=== PATIENT | male | born 1970 | race Caucasian/White ===

== ENCOUNTER 2021-02-10 10:15 | Inpatient (IN) ==
[2021-02-10] MEDS ORDERED: LEVAQUIN PREMIX IV 750 MG 750 MG/150 ML BAG IV ONE ×2 (10:38→10:56)
[2021-02-10] MEDS ORDERED: NS 1000 ML 1,000 ML IV ONE ×2 (10:38→13:00)
[2021-02-10] MEDS ORDERED: DUONEB 0.5 MG/3 MG (3 mL) NEB ONE ×2 (10:38→11:01)
--- NOTE | 2021-02-10 10:38 | DR.GENAD ---
HPI Time Seen Time Seen by Provider: 02/10/21 10:34 PCP Primary Care Physician: BEATRIZ LEWIS HPI Comment HPI Comment: PATIENT COMPLAINS OF PROGRESSIVE DYSPNEA, DYSPNEA AT REST, PRODUCTIVE COUGH BLOOD SPUTUM, WEAKNESS, FEVER. DENIES CHEST PAIN. HAS HAD IST VACCINE PFIZER 12 DAYS AGO. HAS GIRLFRIEND POSITIVE WITH COVID. Complaint/Symptoms Chief Complaint Doctors Comments: DYSPNEA, PRODUCTIVE COUGH, FEVER Chief Complaint:: PATIENT CAME TO ER REPORTS SOB WORSENING, TESTED FOR COVID WITH NEGATIVE RESULTS 10 DAYS AGO. PATIENT REPORTS GIRLFRIEND IS POSITIVE. COVID-19 Coronavirus risk:travel/contact w/high risk person: Yes Has patient experienced Coronavirus symptoms: No Coronavirus symptoms experienced: Shortness of Breath Nurses notes reviewed Nurses Notes Review: Yes Source History Provided: Patient Mode of Arrival Mode of Arrival: Ambulatory Timing Onset of Chief Complaint: 02/01/21 Came on: Gradually Duration Duration: Constant Modifying Factors Worsens:: EXERTION Associated Signs and Symptoms Associated Signs and Symptoms: PRODUCTIVE COUGH, FEVER PMH PMH Past Medical History: No Past Surgical History: Yes Surgical History: Tonsillectomy Family History History of Family Medical Conditions: Yes Family Medical History: Diabetes Mellitus Social History Alcohol Use: None Do you use any recreational Drugs:: No Lives With: Significant Other Travel Risk Coronavirus risk:travel/contact w/high risk person: Yes Has patient experienced Coronavirus symptoms: No Coronavirus symptoms experienced: Shortness of Breath Infectious screening Have you traveled outside the country in the last 6 months?: No Isolation: Droplet ROS Review of Systems Constitutional: Chills, Fever, Malaise, Weakness and Fatigue Eyes: No Symptoms Reported ENTM: No Symptoms Reported Respiratoy: Productive Cough (BLOOD MIXED IN SPUTUM) Cardiovascular: No Symptoms Reported Gastrointestinal/Abdominal: No Symptoms Reported Genitourinary: No Symptoms Reported Neurological: No Symptoms Reported Musculoskeletal: No Symptoms Reported Integumentary: No Symptoms Reported Hematologic/Lymphatic: No Symptoms Reported Endocrine: No Symptoms Reported Psychiatric: No Symptoms Reported All Other Systems: Reviewed and Negative PE Vital Signs Vitals: Temperature 98.2 F Pulse Rate 115 Respiratory Rate 31 Blood Pressure 148/90 O2 Sat by Pulse Oximetry 89 General General Appearance: Alert and In No Apparent Distress Head Head Exam: Normal Inspection and Atraumatic Eyes Eye exam: Normal Appearance, PERRL and EOMI ENT ENT Exam: Normal Exam and Normal Oropharynx External Ear Exam: Normal External Inspection TM/Canal Exam: Bilateral: Normal Mouth Exam: Normal Inspection Neck Neck Exam: Normal Inspection and Full ROM Chest Chest Inspection: Normal Inspection and Symmetric Chest Wall Rise Respiratory Respiratory Exam: Bilateral: Decreased Breath Sounds and Bilateral: Dullness on Percussion and Lower: Decreased Breath Sounds and Lower: Dullness on Percussion Cardiovascular Cardiovascular Exam: Regular Rate and Normal Rhythm Abdominal Exam Abdominal Exam: Normal Inspection, Normal Bowel Sounds and Soft Extremities Extremities Exam: Normal Inspection and Full ROM Back Back Exam: Normal Inspection, Full ROM and Tenderness Neurologic Neurological Exam: Alert Psychiatric Psychiatric Exam: Normal Affect and Normal Mood MDM Differential Diagnosis Differential Diagnosis: COVID PNEUMONIA, PULMONARY EMBOLISM, CONGESTIVE HEART FAILURE COURSE Treatment Treatment: PLACED ON SEPSIS PROTOCOL 170/30ML, AFTER 2 SETS OF BLOOD CULTURES, LEVAQUIN 750MG IVPB, DUO NEB AEROSOL 12ML, PLACED ON TELEMETRY, OXYGEN, ADMINISTERED 2 LITERS NS, LACTIC 1.8, ABG PH-7.44/CO2-44/P02-45/BICARB-29/SAT-83%, ADMINISTERED DUONEB 12ML OVER 40 MINUTES, PLACED ON 4 LITERS NASAL CANNULA OXYGEN PULSE OX 91% Reevaluation 1st: Unchanged Consultation Call Returned: 15:20 Consultation Comments: FINDINGS DISCUSSED WITH DR RICK FOR INPATIENT ADMISSION Education/Counseling Educated On: Treatment and Diagnosis ROR Labs Reviewed Result Diagrams: 02/10/21 11:10 02/10/21 11:10 Laboratory: WBC 5.8 X10^3/uL (3.6-10.0) 02/10/21 11:10 RBC 5.05 X10^6/uL (4.7-6.0) 02/10/21 11:10 Hgb 15.4 g/dL (13.5-18.0) 02/10/21 11:10 Hct 43.7 % (42.0-54.0) 02/10/21 11:10 MCV 86.6 fL (80.0-100.0) 02/10/21 11:10 MCH 30.5 pg (27.0-34.0) 02/10/21 11:10 MCHC 35.2 g/dL (33.0-35.0) H 02/10/21 11:10 RDW 12.6 % (11.6-16.5) 02/10/21 11:10 Plt Count 126 X10^3/uL (150.0-450.0) L 02/10/21 11:10 MPV 8.8 fL (7.4-11.0) 02/10/21 11:10 Neut % (Auto) 82.2 % (42.0-75.0) H 02/10/21 11:10 Lymph % (Auto) 11.0 % (21.0-51.0) L 02/10/21 11:10 [place] % (Auto) 6.6 % (0.0-13.0) 02/10/21 11:10 Eos % (Auto) 0.0 % (0.9-2.9) L 02/10/21 11:10 Baso % (Auto) 0.2 % (0.2-1.0) 02/10/21 11:10 Neut # (Auto) 4.8 x10^3/uL (2.2-4.8) 02/10/21 11:10 Lymph # (Auto) 0.6 X10^3/uL (1.3-2.9) L 02/10/21 11:10 [place] # (Auto) 0.4 x10^3/uL (0.3-0.8) 02/10/21 11:10 Eos # (Auto) 0.0 x10^3/uL (0.0-0.2) 02/10/21 11:10 Baso # (Auto) 0.0 X10^3/uL (0.0-0.1) 02/10/21 11:10 Absolute Nucleated RBC 0.1 /100WBC 02/10/21 11:10 PT 13.2 SECONDS (11.8-14.3) 02/10/21 11:06 INR Target Range - 02/10/21 11:06 INR 1.05 (0.8-1.3) 02/10/21 11:06 D-Dimer 0.83 ug/ml (0.0-0.57) H* 02/10/21 11:06 Sample Site Lr 02/10/21 10:50 ABG pH 7.440 (7.35-7.45) 02/10/21 10:50 ABG pCO2 44.0 mmHg (35.0-45.0) 02/10/21 10:50 ABG pO2 45.0 mmHg (80.0-100.0) L* 02/10/21 10:50 ABG HCO3 29.9 mmol/L (22-26) H 02/10/21 10:50 ABG O2 Saturation 83.0 % (90-100) L* 02/10/21 10:50 ABG Base Excess 5.1 mmol/L (-2.0-2.0) H 02/10/21 10:50 Sha Test Pos 02/10/21 10:50 A-a Gradient 50.0 mmHg 02/10/21 10:50 FiO2 21.0 02/10/21 10:50 Blood Gas Comments Pt guicho well. ssd 02/10/21 10:50 Sodium 131 mmol/L (136-145) L 02/10/21 11:10 Corrected Sodium 135 mmol/L (136-145) L 02/10/21 11:10 Potassium 4.0 mmol/L (3.5-5.1) 02/10/21 11:10 Chloride 93 mmol/L (98-107) L 02/10/21 11:10 Carbon Dioxide 30.5 mmol/L (21-32) 02/10/21 11:10 BUN 6 mg/dL (7-18) L 02/10/21 11:10 Creatinine 0.83 mg/dL (0.70-1.30) 02/10/21 11:10 Est GFR (MDRD) Af Amer > 60 (>60) 02/10/21 11:10 Est GFR (MDRD) Non-Af > 60 (>60) 02/10/21 11:10 Glucose 252 mg/dL (65-99) H 02/10/21 11:10 Lactic Acid 1.8 mmol/L (0.4-2.0) 02/10/21 11:10 Calcium 8.2 mg/dL (8.5-10.1) L 02/10/21 11:10 Corrected Calcium 9.2 mg/dL (8.5-10.1) 02/10/21 11:10 Ferritin 2312 ng/mL (26-388) H 02/10/21 11:06 Total Bilirubin 0.30 mg/dL (0.2-1.0) 02/10/21 11:10 AST 65 Units/L (15-37) H 02/10/21 11:10 ALT 70 Units/L (12-78) 02/10/21 11:10 Alkaline Phosphatase 66 Units/L (46-116) 02/10/21 11:10 Troponin I < 0.02 ng/mL (0-1.5) 02/10/21 11:10 C-Reactive Protein 205.80 mg/L (0-3.0) H 02/10/21 11:10 B-Natriuretic Peptide 11.7 pg/mL (0-79) 02/10/21 11:10 Total Protein 7.0 g/dL (6.4-8.2) 02/10/21 11:10 Albumin 2.7 g/dL (3.4-5.0) L 02/10/21 11:10 Globulin 4.3 g/dL (2.5-4.5) 02/10/21 11:10 Albumin/Globulin Ratio 0.6 Ratio (1.1-2.1) L 02/10/21 11:10 SARS-CoV-2 (PCR) Positive (NEGATIVE) A 02/10/21 10:58 Influenza Type A (PCR) Negative (NEGATIVE) 02/10/21 10:58 Influenza Type B (PCR) Negative (NEGATIVE) 02/10/21 10:58 RSV (PCR) Negative (NEGATIVE) 02/10/21 10:58 XRAY XRAY Interpreted by: Radiologist (CTA CHEST IV CONTRAST- NO EVIDENCE OF PULMONA RY EMBOLISM, MODERATE BILATERAL GROUND GLASS OPACITIES) X-ray Results: PORTABLE CHEST XRAY-DIFFUSE OPACITIES CONSISTENT WITH MODERATE SEVERE PNEUMONIA EKG Rate: 99 Rhythm: NSR ST: Nonsp Opioid Opioid Risk Tool Age (Gerry box if 16-45): No History of Preadolescent Sexual Abuse: No Total: 0 Total Score Risk Category: Low Risk Copyright: [facility] predicting aberrant behaviors Diagnosis Discharge Problem: Acute dyspnea, Pneumonia due to COVID-19 virus
[2021-02-10] MEDS ORDERED: NS 1000 ML 1,000 ML ONE ×3 (10:55→18:22)
[2021-02-10 10:57] LABS: ABG BASE EXCESS 5.1 mmol/L (-2.0-2.0); ABG HCO3 29.9 mmol/L (22-26)
[2021-02-10 10:59] LABS: ABG ALLEN TEST POS
[2021-02-10 11:30] LABS: BASOPHILS % (AUTO) 0.2 % (0.2-1.0); HEMATOCRIT 43.7 % (42.0-54.0); HEMOGLOBIN 15.4 g/dL (13.5-18.0); LYMPHOCYTES # (AUTO) 0.6 X10^3/uL (1.3-2.9); MEAN CORPUSCULAR HEMOGLOBIN 30.5 pg (27.0-34.0); MEAN CORPUSCULAR HGB CONC 35.2 g/dL (33.0-35.0); MEAN CORPUSCULAR VOLUME 86.6 fL (80.0-100.0); MEAN PLATELET VOLUME 8.8 fL (7.4-11.0); MONOCYTES # (AUTO) 0.4 x10^3/uL (0.3-0.8); MONOCYTES % (AUTO) 6.6 % (0.0-13.0); NEUTROPHILS # (AUTO) 4.8 x10^3/uL (2.2-4.8); NEUTROPHILS % (AUTO) 82.2 % (42.0-75.0); PLATELET COUNT 126 X10^3/uL (150.0-450.0); RED BLOOD COUNT 5.05 X10^6/uL (4.7-6.0); RED CELL DISTRIBUTION WIDTH 12.6 % (11.6-16.5); WHITE BLOOD COUNT 5.8 X10^3/uL (3.6-10.0)
--- NOTE | 2021-02-10 11:32 | RAD ---
HISTORYPATIENT CAME TO ER REPORTS SOB WORSENING, TESTED FOR COVID WITH NEGATIVE RESULTS 10 DAYS AGO. PATIENT REPORTS GIRLFRIEND IS POSITIVE TONSILSSTUDYCHEST, 1 VIEWCOMPARISONNoneFINDINGSThe trachea is midline. The cardiac silhouette is unremarkable. There are bilateral diffuse opacities consistent with pneumonia. The infiltrate is more diffuse in the left mid and lower lung field more focal in dense in the right upper and minimally in the right lower lung field. There is no effusion adenopathy or pneumothorax present. The bony thorax is unremarkable.IMPRESSIONBilateral diffuse lung opacities consistent with moderately severe pneumonia. Radiographic follow-up is recommended..Electronically signed by: LATOSHA VELEZ (Feb 10, 2021 11:30:39)
[2021-02-10 11:47] LABS: LACTIC ACID 1.8 mmol/L (0.4-2.0)
[2021-02-10 11:54] LABS: ALANINE AMINOTRANSFERASE 70 Units/L (12-78); ALBUMIN 2.7 g/dL (3.4-5.0); ALKALINE PHOSPHATASE 66 Units/L (46-116); ASPARTATE AMINO TRANSFERASE 65 Units/L (15-37); BLOOD UREA NITROGEN 6 mg/dL (7-18); CALCIUM 8.2 mg/dL (8.5-10.1); CARBON DIOXIDE 30.5 mmol/L (21-32); CHLORIDE 93 mmol/L (98-107); COR CA(FOR HYPOALB) 9.2 mg/dL (8.5-10.1); COR NA(FOR HYPERGLY) 135 mmol/L (136-145); CREATININE 0.83 mg/dL (0.70-1.30); SODIUM 131 mmol/L (136-145); TROPONIN I < 0.02 ng/mL (0-1.5); eGFR NON BLACK RACES > 60 (>60)
--- NOTE | 2021-02-10 14:40 | CT ---
HISTORYDYSPNEA ELEVATED DDIMERSTUDYCTA CHESTCOMPARISONSame day chest radiograph.TECHNIQUECTA chest protocol with axial images from the thoracic inlet to upper abdomen with IV contrast. Sagittal and coronal reformats and MIP images were created. Automated exposure control was utilized.FINDINGSThe visualized thyroid gland appears benign. Non-atherosclerotic normal caliber thoracic aorta. The pulmonary artery trunk is normal in caliber. No filling defect in the main or proximal segmental pulmonary arteries. More distal pulmonary artery branches are limited due to suboptimal contrast bolus timing. The heart is normal in size. No pericardial effusion. Mildly enlarged prevascular space lymph node measuring 1.2 cm short axis image 55 series 4. Mildly enlarged AP window lymph node measuring 1.4 cm short axis image 58 series 4. Status post cholecystectomy. There is diffuse hepatic steatosis. No acute osseous abnormality. The trachea and mainstem bronchi appear patent. Moderate bilateral ground-glass opacities in a pattern typical for COVID 19. No pleural effusion or pneumothorax.IMPRESSIONNo central or proximal segmental pulmonary embolus. Moderate ground-glass opacities consistent with COVID 19 pneumonia.Hepatic steatosis.Electronically signed by: Esvin Anderson (Feb 10, 2021 14:38:16)
[2021-02-10] MEDS ORDERED: PERIACTIN TAB 4 MG PO PRN (16:49)
[2021-02-10] MEDS ORDERED: PHARMACY CONSULT - LOVENOX XX SCH (17:00)
[2021-02-10] MEDS ORDERED: PHARMACY CONSULT - IVERMECTIN XX SCH (17:00)
[2021-02-10] MEDS: NS 1000 ML 1,000 ML IV SCH (18:30)
[2021-02-10] MEDS: BROVANA IN SCH (21:56)
[2021-02-10] MEDS: PULMICORT NEB TX 0.5 MG NEB SCH (21:56)
[2021-02-10] MEDS: IVERMECTIN PO SCH (22:00)
[2021-02-10] MEDS: PROTONIX INJ 40 MG VIAL IVP SCH (22:40)
[2021-02-10] MEDS: VIBRAMYCIN PO SCH (22:45)
[2021-02-10] MEDS: PEPCID TAB 40 MG PO SCH (22:45)
[2021-02-10] MEDS: ZINC SULFATE PO SCH (22:45)
[2021-02-10] MEDS: THIAMINE HCL INJ IVP SCH (22:45)
[2021-02-10] MEDS: CYTOTEC PO SCH (22:45)
[2021-02-10] MEDS: LOVENOX INJ 150 MG SYR SC SCH (22:46)
[2021-02-10] MEDS: MELATONIN PO SCH (22:46)
[2021-02-10] MEDS: ASCORBIC ACID INJ MULTI-DOSE VIAL 1,500 MG in NS 100 ML IV 100 ML IV SCH (22:47)
[2021-02-11] MEDS: ASCORBIC ACID INJ MULTI-DOSE VIAL 1,500 MG in NS 100 ML IV 100 ML IV SCH ×4 (04:15→21:50)
[2021-02-11] MEDS: CYTOTEC PO SCH ×4 (05:38→23:10)
[2021-02-11] MEDS: PULMICORT NEB TX 0.5 MG NEB SCH ×2 (08:09→20:58)
[2021-02-11] MEDS: BROVANA IN SCH ×2 (08:09→20:58)
[2021-02-11] MEDS ORDERED: LOVENOX INJ 120 MG SYR SC ONE (08:54)
[2021-02-11] MEDS ORDERED: THIAMINE HCL INJ ONE (08:54)
[2021-02-11] MEDS ORDERED: VIBRAMYCIN PO ONE (08:54)
[2021-02-11] MEDS ORDERED: PEPCID TAB 20 MG ONE ×2 (08:54→10:29)
[2021-02-11] MEDS ORDERED: ZINC SULFATE ONE (08:55)
[2021-02-11] MEDS ORDERED: VITAMIN D3 125 mcg (5,000 UNITS) ONE (08:55)
[2021-02-11] MEDS ORDERED: LIPITOR TAB 80 MG ONE (08:55)
[2021-02-11] MEDS ORDERED: DECADRON TAB ONE (08:55)
[2021-02-11] MEDS ORDERED: LOVENOX INJ 30 MG SYR SC ONE (08:56)
[2021-02-11] MEDS ORDERED: PROTONIX INJ 40 MG VIAL ONE (08:56)
[2021-02-11] MEDS ORDERED: NS 100 ML IV 100 ML ONE ×2 (08:57→14:20)
[2021-02-11] MEDS ORDERED: DECADRON TAB PO SCH (09:00)
[2021-02-11] MEDS: VITAMIN A PO SCH ×2 (10:15→11:09)
[2021-02-11] MEDS: LOVENOX INJ 150 MG SYR SC SCH ×2 (10:30→21:50)
[2021-02-11] MEDS: PROTONIX INJ 40 MG VIAL IVP SCH ×2 (10:30→21:52)
[2021-02-11] MEDS: ZINC SULFATE PO SCH ×2 (10:30→21:53)
[2021-02-11] MEDS: LIPITOR TAB 80 MG PO SCH (10:30)
[2021-02-11] MEDS: THIAMINE HCL INJ IVP SCH ×2 (10:30→21:53)
[2021-02-11] MEDS: PEPCID TAB 40 MG PO SCH ×2 (10:30→21:52)
[2021-02-11] MEDS: VIBRAMYCIN PO SCH ×2 (10:30→21:53)
[2021-02-11] MEDS: VITAMIN D (1.25MG) PO SCH ×2 (10:30→15:00)
[2021-02-11 12:56] LABS: BILIRUBIN,URINE NEGATIVE (NEGATIVE); BLOOD/HEMOGLOBIN,URINE NEGATIVE (NEGATIVE); GLUCOSE, URINE NEGATIVE (NEGATIVE); KETONES,URINE NEGATIVE (NEGATIVE); LEUKOCYTE ESTERASE ,URINE NEGATIVE (NEGATIVE); NITRITES,URINE NEGATIVE (NEGATIVE); PROTEIN,URINE 2+ (NEGATIVE); UROBILINOGEN,URINE NORMAL (NORMAL)
[2021-02-11 12:58] LABS: APPEARANCE,URINE CLEAR (CLEAR); COLOR,URINE YELLOW (YELLOW)
[2021-02-11] MEDS ORDERED: PROTONIX INJ 40 MG VIAL IVP SCH (13:00)
[2021-02-11 13:03] LABS: AMORPHOUS SEDIMENT,UR TRACE /HPF (NEGATIVE); BACTERIA,URINE TRACE /HPF (NEGATIVE); RBC,URINE NONE SEEN /HPF (0-3); SQUAMOUS EPITHELIAL CELL,UR RARE /HPF (NEGATIVE)
[2021-02-11] MEDS ORDERED: FLUVOXAMINE MALEATE ONE (14:19)
[2021-02-11] MEDS: FLUVOXAMINE MALEATE PO SCH ×2 (14:58→21:50)
[2021-02-11] MEDS ORDERED: MELATONIN PO SCH (21:00)
[2021-02-11] MEDS: IVERMECTIN PO SCH (21:50)
[2021-02-11] MEDS: MELATONIN PO SCH (21:51)
[2021-02-11] MEDS: NS 1000 ML 1,000 ML IV SCH (23:10)
[2021-02-12] MEDS: ASCORBIC ACID INJ MULTI-DOSE VIAL 1,500 MG in NS 100 ML IV 100 ML IV SCH ×4 (02:42→20:48)
[2021-02-12] MEDS: NS 1000 ML 1,000 ML IV SCH ×2 (02:43→17:10)
[2021-02-12] MEDS: PULMICORT NEB TX 0.5 MG NEB SCH ×2 (09:09→21:00)
[2021-02-12] MEDS: BROVANA IN SCH ×2 (09:09→21:00)
[2021-02-12] MEDS: VITAMIN A PO SCH (09:36)
[2021-02-12] MEDS: PROTONIX INJ 40 MG VIAL IVP SCH ×2 (09:37→20:52)
[2021-02-12] MEDS: FLUVOXAMINE MALEATE PO SCH ×2 (09:39→20:49)
[2021-02-12] MEDS: CYTOTEC PO SCH ×4 (09:39→20:52)
[2021-02-12] MEDS: ZINC SULFATE PO SCH ×2 (09:39→20:49)
[2021-02-12] MEDS: VITAMIN D3 125 mcg (5,000 UNITS) PO SCH (09:39)
[2021-02-12] MEDS: PEPCID TAB 40 MG PO SCH ×2 (09:39→20:51)
[2021-02-12] MEDS: LIPITOR TAB 80 MG PO SCH (09:39)
[2021-02-12] MEDS: THIAMINE HCL INJ IVP SCH ×2 (09:40→20:51)
[2021-02-12] MEDS: VIBRAMYCIN PO SCH ×2 (09:40→20:51)
[2021-02-12] MEDS: LOVENOX INJ 150 MG SYR SC SCH ×2 (09:56→20:48)
[2021-02-12] MEDS: SOLU-Medrol 125 MG VIAL IVP SCH ×3 (12:26→23:48)
[2021-02-12] MEDS: MELATONIN PO SCH (20:51)
[2021-02-12] MEDS: IVERMECTIN PO SCH (20:59)
[2021-02-13] MEDS: ASCORBIC ACID INJ MULTI-DOSE VIAL 1,500 MG in NS 100 ML IV 100 ML IV SCH ×4 (02:21→21:00)
[2021-02-13 05:30] LABS: BASOPHILS % (AUTO) 0.2 % (0.2-1.0); HEMATOCRIT 39.8 % (42.0-54.0); HEMOGLOBIN 13.9 g/dL (13.5-18.0); LYMPHOCYTES # (AUTO) 0.5 X10^3/uL (1.3-2.9); LYMPHOCYTES % (AUTO) 6.5 % (21.0-51.0); MEAN CORPUSCULAR HEMOGLOBIN 30.4 pg (27.0-34.0); MEAN PLATELET VOLUME 9.4 fL (7.4-11.0); MONOCYTES # (AUTO) 0.4 x10^3/uL (0.3-0.8); MONOCYTES % (AUTO) 4.8 % (0.0-13.0); NEUTROPHILS % (AUTO) 88.5 % (42.0-75.0); PLATELET COUNT 216 X10^3/uL (150.0-450.0); RED BLOOD COUNT 4.57 X10^6/uL (4.7-6.0); RED CELL DISTRIBUTION WIDTH 12.8 % (11.6-16.5); WHITE BLOOD COUNT 7.9 X10^3/uL (3.6-10.0)
[2021-02-13 05:37] LABS: BLOOD UREA NITROGEN 15 mg/dL (7-18); CALCIUM 8.5 mg/dL (8.5-10.1); CARBON DIOXIDE 30.3 mmol/L (21-32); CHLORIDE 101 mmol/L (98-107); COR NA(FOR HYPERGLY) 145 mmol/L (136-145); CREATININE 0.93 mg/dL (0.70-1.30); SODIUM 139 mmol/L (136-145); eGFR NON BLACK RACES > 60 (>60)
[2021-02-13] MEDS: SOLU-Medrol 125 MG VIAL IVP SCH ×3 (06:00→17:27)
[2021-02-13] MEDS: PULMICORT NEB TX 0.5 MG NEB SCH ×2 (09:39→20:30)
[2021-02-13] MEDS: BROVANA IN SCH ×2 (09:39→20:30)
[2021-02-13] MEDS: LIPITOR TAB 80 MG PO SCH (09:56)
[2021-02-13] MEDS: FLUVOXAMINE MALEATE PO SCH ×2 (09:56→21:00)
[2021-02-13] MEDS: CYTOTEC PO SCH ×4 (09:56→21:00)
[2021-02-13] MEDS: PROTONIX INJ 40 MG VIAL IVP SCH ×2 (09:57→21:00)
[2021-02-13] MEDS: PEPCID TAB 40 MG PO SCH ×2 (09:57→21:00)
[2021-02-13] MEDS: THIAMINE HCL INJ IVP SCH ×2 (09:57→21:00)
[2021-02-13] MEDS: VITAMIN D3 125 mcg (5,000 UNITS) PO SCH (09:58)
[2021-02-13] MEDS: LOVENOX INJ 150 MG SYR SC SCH ×2 (10:04→21:00)
[2021-02-13] MEDS: VIBRAMYCIN PO SCH ×2 (10:05→21:00)
[2021-02-13] MEDS: ACTOS PO SCH (10:05)
[2021-02-13] MEDS: VITAMIN A PO SCH (10:05)
[2021-02-13] MEDS: GLUCOPHAGE XR 24-HR PO SCH ×2 (10:07→21:00)
[2021-02-13] MEDS: ZINC SULFATE PO SCH ×2 (13:44→21:00)
[2021-02-13] MEDS: ULTRAM PO PRN ×2 (13:52→21:00)
[2021-02-13] MEDS: NS 1000 ML 1,000 ML IV SCH (17:23)
[2021-02-13] MEDS: IVERMECTIN PO SCH (21:00)
[2021-02-13] MEDS: MELATONIN PO SCH (21:00)
[2021-02-14] MEDS ORDERED: ROBITUSSIN DM PO PRN
[2021-02-14] MEDS ORDERED: ROBITUSSIN DM ONE (00:02)
[2021-02-14] MEDS: SOLU-Medrol 125 MG VIAL IVP SCH ×4 (01:08→17:02)
[2021-02-14] MEDS: ASCORBIC ACID INJ MULTI-DOSE VIAL 1,500 MG in NS 100 ML IV 100 ML IV SCH ×4 (04:00→21:28)
[2021-02-14 06:31] LABS: BASOPHILS % (AUTO) 0.1 % (0.2-1.0); HEMATOCRIT 40.4 % (42.0-54.0); HEMOGLOBIN 13.9 g/dL (13.5-18.0); LYMPHOCYTES # (AUTO) 0.5 X10^3/uL (1.3-2.9); LYMPHOCYTES % (AUTO) 4.7 % (21.0-51.0); MEAN CORPUSCULAR HEMOGLOBIN 30.2 pg (27.0-34.0); MEAN CORPUSCULAR HGB CONC 34.4 g/dL (33.0-35.0); MEAN CORPUSCULAR VOLUME 87.8 fL (80.0-100.0); MEAN PLATELET VOLUME 9.3 fL (7.4-11.0); MONOCYTES # (AUTO) 0.5 x10^3/uL (0.3-0.8); MONOCYTES % (AUTO) 4.6 % (0.0-13.0); NEUTROPHILS # (AUTO) 9.7 x10^3/uL (2.2-4.8); NEUTROPHILS % (AUTO) 90.6 % (42.0-75.0); PLATELET COUNT 237 X10^3/uL (150.0-450.0); WHITE BLOOD COUNT 10.7 X10^3/uL (3.6-10.0)
[2021-02-14 06:46] LABS: BLOOD UREA NITROGEN 18 mg/dL (7-18); CALCIUM 8.5 mg/dL (8.5-10.1); CARBON DIOXIDE 30.3 mmol/L (21-32); CHLORIDE 102 mmol/L (98-107); COR NA(FOR HYPERGLY) 146 mmol/L (136-145); CREATININE 0.96 mg/dL (0.70-1.30); SODIUM 140 mmol/L (136-145); eGFR NON BLACK RACES > 60 (>60)
[2021-02-14 07:18] LABS: BAND NEUTROPHILS % 1 % (0-10); BASOPHILS % (MANUAL) 1 % (0-1); METAMYELOCYTES % 1; MYELOCYTES % 2; PLATELET MORPHOLOGY COMMENT NORMAL (NORMAL)
[2021-02-14] MEDS: PROTONIX INJ 40 MG VIAL IVP SCH ×2 (08:20→21:29)
[2021-02-14] MEDS: VITAMIN D3 125 mcg (5,000 UNITS) PO SCH (08:28)
[2021-02-14] MEDS: VITAMIN A PO SCH (08:28)
[2021-02-14] MEDS: LOVENOX INJ 150 MG SYR SC SCH ×2 (08:28→21:29)
[2021-02-14] MEDS: CYTOTEC PO SCH ×4 (08:30→21:28)
[2021-02-14] MEDS: THIAMINE HCL INJ IVP SCH ×2 (08:30→21:30)
[2021-02-14] MEDS: VIBRAMYCIN PO SCH ×2 (08:31→21:30)
[2021-02-14] MEDS: GLUCOPHAGE XR 24-HR PO SCH ×2 (08:31→21:28)
[2021-02-14] MEDS: ZINC SULFATE PO SCH ×2 (08:31→21:30)
[2021-02-14] MEDS: LIPITOR TAB 80 MG PO SCH (08:31)
[2021-02-14] MEDS: FLUVOXAMINE MALEATE PO SCH ×2 (08:31→21:28)
[2021-02-14] MEDS: PEPCID TAB 40 MG PO SCH ×2 (08:32→21:29)
[2021-02-14] MEDS: ACTOS PO SCH (08:32)
[2021-02-14] MEDS: PULMICORT NEB TX 0.5 MG NEB SCH ×2 (08:55→20:48)
[2021-02-14] MEDS: BROVANA IN SCH ×2 (08:55→20:48)
[2021-02-14] MEDS: INVOKANA PO SCH (09:36)
[2021-02-14] MEDS: VALIUM PO PRN ×2 (09:37→21:00)
[2021-02-14] MEDS: NS 1000 ML 1,000 ML IV SCH ×2 (16:24→20:00)
[2021-02-14] MEDS: ULTRAM PO PRN (21:00)
[2021-02-14] MEDS: MELATONIN PO SCH (21:29)
[2021-02-14] MEDS: IVERMECTIN PO SCH (21:29)
[2021-02-14 22:24] LABS: ALANINE AMINOTRANSFERASE 72 Units/L (12-78); ALBUMIN 2.9 g/dL (3.4-5.0); ALKALINE PHOSPHATASE 73 Units/L (46-116); ASPARTATE AMINO TRANSFERASE 46 Units/L (15-37); COR CA(FOR HYPOALB) 9.4 mg/dL (8.5-10.1); TOTAL PROTEIN 6.5 g/dL (6.4-8.2)
[2021-02-14 23:22] LABS: ALANINE AMINOTRANSFERASE 66 Units/L (12-78); ALBUMIN 2.8 g/dL (3.4-5.0); ALKALINE PHOSPHATASE 66 Units/L (46-116); ASPARTATE AMINO TRANSFERASE 43 Units/L (15-37); COR CA(FOR HYPOALB) 9.5 mg/dL (8.5-10.1); TOTAL PROTEIN 6.5 g/dL (6.4-8.2)
[2021-02-15] MEDS: SOLU-Medrol 125 MG VIAL IVP SCH ×4 (01:00→17:04)
[2021-02-15] MEDS: ASCORBIC ACID INJ MULTI-DOSE VIAL 1,500 MG in NS 100 ML IV 100 ML IV SCH ×4 (02:41→21:00)
[2021-02-15 06:15] LABS: BASOPHILS % (AUTO) 0.1 % (0.2-1.0); HEMOGLOBIN 14.5 g/dL (13.5-18.0); LYMPHOCYTES # (AUTO) 0.5 X10^3/uL (1.3-2.9); LYMPHOCYTES % (AUTO) 4.7 % (21.0-51.0); MEAN CORPUSCULAR HEMOGLOBIN 30.2 pg (27.0-34.0); MEAN CORPUSCULAR HGB CONC 34.5 g/dL (33.0-35.0); MEAN CORPUSCULAR VOLUME 87.6 fL (80.0-100.0); MEAN PLATELET VOLUME 9.3 fL (7.4-11.0); MONOCYTES # (AUTO) 0.5 x10^3/uL (0.3-0.8); MONOCYTES % (AUTO) 4.6 % (0.0-13.0); NEUTROPHILS # (AUTO) 9.9 x10^3/uL (2.2-4.8); NEUTROPHILS % (AUTO) 90.6 % (42.0-75.0); PLATELET COUNT 249 X10^3/uL (150.0-450.0); RED BLOOD COUNT 4.79 X10^6/uL (4.7-6.0); RED CELL DISTRIBUTION WIDTH 12.7 % (11.6-16.5); WHITE BLOOD COUNT 10.9 X10^3/uL (3.6-10.0)
[2021-02-15 06:28] LABS: ALANINE AMINOTRANSFERASE 88 Units/L (12-78); ALBUMIN 2.7 g/dL (3.4-5.0); ALKALINE PHOSPHATASE 74 Units/L (46-116); ASPARTATE AMINO TRANSFERASE 41 Units/L (15-37); BLOOD UREA NITROGEN 23 mg/dL (7-18); CALCIUM 8.6 mg/dL (8.5-10.1); CARBON DIOXIDE 31.6 mmol/L (21-32); CHLORIDE 104 mmol/L (98-107); COR CA(FOR HYPOALB) 9.6 mg/dL (8.5-10.1); COR NA(FOR HYPERGLY) 147 mmol/L (136-145); CREATININE 0.88 mg/dL (0.70-1.30); SODIUM 143 mmol/L (136-145); TOTAL PROTEIN 6.6 g/dL (6.4-8.2); eGFR NON BLACK RACES > 60 (>60)
[2021-02-15 07:53] LABS: BAND NEUTROPHILS % 3 % (0-10)
[2021-02-15 07:54] LABS: PLATELET MORPHOLOGY COMMENT NORMAL (NORMAL)
[2021-02-15] MEDS ORDERED: NS 100 ML IV 100 ML ONE (08:07)
[2021-02-15] MEDS: VIBRAMYCIN PO SCH ×2 (08:14→21:00)
[2021-02-15] MEDS: VITAMIN A PO SCH (08:14)
[2021-02-15] MEDS: VITAMIN D3 125 mcg (5,000 UNITS) PO SCH (08:15)
[2021-02-15] MEDS: ACTOS PO SCH (08:15)
[2021-02-15] MEDS: LIPITOR TAB 80 MG PO SCH (08:15)
[2021-02-15] MEDS: ZINC SULFATE PO SCH ×2 (08:15→21:00)
[2021-02-15] MEDS: FLUVOXAMINE MALEATE PO SCH ×2 (08:16→21:00)
[2021-02-15] MEDS: PROTONIX INJ 40 MG VIAL IVP SCH ×2 (08:16→21:00)
[2021-02-15] MEDS: GLUCOPHAGE XR 24-HR PO SCH ×2 (08:16→21:00)
[2021-02-15] MEDS: CYTOTEC PO SCH ×4 (08:16→21:00)
[2021-02-15] MEDS: PEPCID TAB 40 MG PO SCH ×2 (08:16→21:00)
[2021-02-15] MEDS: LOVENOX INJ 150 MG SYR SC SCH ×2 (08:17→21:00)
[2021-02-15] MEDS: THIAMINE HCL INJ IVP SCH ×2 (08:17→21:00)
[2021-02-15] MEDS: INVOKANA PO SCH (08:20)
[2021-02-15] MEDS: BROVANA IN SCH ×2 (09:00→20:14)
[2021-02-15] MEDS: PULMICORT NEB TX 0.5 MG NEB SCH ×2 (11:04→20:14)
[2021-02-15] MEDS: NS 1000 ML 1,000 ML IV SCH (16:14)
[2021-02-15] MEDS: VALIUM PO PRN (21:00)
[2021-02-15] MEDS: MELATONIN PO SCH (21:00)
[2021-02-16] MEDS: SOLU-Medrol 125 MG VIAL IVP SCH ×4 (00:16→18:13)
[2021-02-16] MEDS: ASCORBIC ACID INJ MULTI-DOSE VIAL 1,500 MG in NS 100 ML IV 100 ML IV SCH ×4 (02:00→21:37)
[2021-02-16 06:11] LABS: BASOPHILS % (AUTO) 0.1 % (0.2-1.0); HEMATOCRIT 38.7 % (42.0-54.0); HEMOGLOBIN 13.5 g/dL (13.5-18.0); LYMPHOCYTES # (AUTO) 0.3 X10^3/uL (1.3-2.9); LYMPHOCYTES % (AUTO) 4.3 % (21.0-51.0); MEAN CORPUSCULAR HEMOGLOBIN 30.5 pg (27.0-34.0); MEAN CORPUSCULAR HGB CONC 34.9 g/dL (33.0-35.0); MEAN CORPUSCULAR VOLUME 87.4 fL (80.0-100.0); MEAN PLATELET VOLUME 9.3 fL (7.4-11.0); MONOCYTES # (AUTO) 0.3 x10^3/uL (0.3-0.8); NEUTROPHILS # (AUTO) 7.4 x10^3/uL (2.2-4.8); NEUTROPHILS % (AUTO) 91.6 % (42.0-75.0); PLATELET COUNT 222 X10^3/uL (150.0-450.0); RED BLOOD COUNT 4.43 X10^6/uL (4.7-6.0); RED CELL DISTRIBUTION WIDTH 12.9 % (11.6-16.5); WHITE BLOOD COUNT 8.1 X10^3/uL (3.6-10.0)
[2021-02-16 06:19] LABS: ALANINE AMINOTRANSFERASE 73 Units/L (12-78); ALBUMIN 2.5 g/dL (3.4-5.0); ALKALINE PHOSPHATASE 60 Units/L (46-116); ASPARTATE AMINO TRANSFERASE 29 Units/L (15-37); BLOOD UREA NITROGEN 24 mg/dL (7-18); CALCIUM 8.3 mg/dL (8.5-10.1); CARBON DIOXIDE 33.1 mmol/L (21-32); CHLORIDE 105 mmol/L (98-107); COR CA(FOR HYPOALB) 9.5 mg/dL (8.5-10.1); COR NA(FOR HYPERGLY) 148 mmol/L (136-145); CREATININE 0.87 mg/dL (0.70-1.30); SODIUM 143 mmol/L (136-145); eGFR NON BLACK RACES > 60 (>60)
[2021-02-16 08:41] LABS: PLATELET MORPHOLOGY COMMENT NORMAL (NORMAL)
[2021-02-16] MEDS: THIAMINE HCL INJ IVP SCH ×2 (09:09→21:38)
[2021-02-16] MEDS: ACTOS PO SCH (09:09)
[2021-02-16] MEDS: VITAMIN A PO SCH (09:09)
[2021-02-16] MEDS: VITAMIN D3 125 mcg (5,000 UNITS) PO SCH (09:10)
[2021-02-16] MEDS: ZINC SULFATE PO SCH ×2 (09:10→21:38)
[2021-02-16] MEDS: PEPCID TAB 40 MG PO SCH ×2 (09:10→21:37)
[2021-02-16] MEDS: PROTONIX INJ 40 MG VIAL IVP SCH ×2 (09:10→21:37)
[2021-02-16] MEDS: VIBRAMYCIN PO SCH ×2 (09:10→21:38)
[2021-02-16] MEDS: LIPITOR TAB 80 MG PO SCH (09:10)
[2021-02-16] MEDS: GLUCOPHAGE XR 24-HR PO SCH ×2 (09:10→21:38)
[2021-02-16] MEDS: FLUVOXAMINE MALEATE PO SCH ×2 (09:11→21:38)
[2021-02-16] MEDS: INVOKANA PO SCH (09:11)
[2021-02-16] MEDS: CYTOTEC PO SCH ×4 (09:12→21:38)
[2021-02-16] MEDS: LOVENOX INJ 150 MG SYR SC SCH ×2 (09:12→21:40)
[2021-02-16] MEDS: BROVANA IN SCH ×2 (09:30→21:00)
[2021-02-16] MEDS: PULMICORT NEB TX 0.5 MG NEB SCH ×2 (09:30→21:00)
[2021-02-16] MEDS: MELATONIN PO SCH (21:38)
[2021-02-16] MEDS: VALIUM PO PRN (21:38)
[2021-02-17] MEDS: NS 1000 ML 1,000 ML IV SCH ×2 (00:28→20:32)
[2021-02-17] MEDS: SOLU-Medrol 125 MG VIAL IVP SCH ×4 (01:00→22:30)
[2021-02-17] MEDS: ASCORBIC ACID INJ MULTI-DOSE VIAL 1,500 MG in NS 100 ML IV 100 ML IV SCH ×4 (02:25→20:33)
[2021-02-17 06:14] LABS: BASOPHILS % (AUTO) 0.3 % (0.2-1.0); HEMATOCRIT 39.4 % (42.0-54.0); HEMOGLOBIN 13.7 g/dL (13.5-18.0); LYMPHOCYTES # (AUTO) 0.3 X10^3/uL (1.3-2.9); LYMPHOCYTES % (AUTO) 4.2 % (21.0-51.0); MEAN CORPUSCULAR HEMOGLOBIN 30.6 pg (27.0-34.0); MEAN CORPUSCULAR HGB CONC 34.7 g/dL (33.0-35.0); MEAN PLATELET VOLUME 9.4 fL (7.4-11.0); MONOCYTES # (AUTO) 0.3 x10^3/uL (0.3-0.8); MONOCYTES % (AUTO) 3.4 % (0.0-13.0); NEUTROPHILS # (AUTO) 7.2 x10^3/uL (2.2-4.8); NEUTROPHILS % (AUTO) 92.1 % (42.0-75.0); PLATELET COUNT 218 X10^3/uL (150.0-450.0); RED BLOOD COUNT 4.48 X10^6/uL (4.7-6.0); RED CELL DISTRIBUTION WIDTH 12.8 % (11.6-16.5); WHITE BLOOD COUNT 7.9 X10^3/uL (3.6-10.0)
[2021-02-17 06:36] LABS: ALANINE AMINOTRANSFERASE 67 Units/L (12-78); ALBUMIN 2.6 g/dL (3.4-5.0); ALKALINE PHOSPHATASE 56 Units/L (46-116); ASPARTATE AMINO TRANSFERASE 26 Units/L (15-37); BLOOD UREA NITROGEN 24 mg/dL (7-18); CALCIUM 8.2 mg/dL (8.5-10.1); CARBON DIOXIDE 31.5 mmol/L (21-32); CHLORIDE 104 mmol/L (98-107); COR CA(FOR HYPOALB) 9.3 mg/dL (8.5-10.1); COR NA(FOR HYPERGLY) 147 mmol/L (136-145); CREATININE 0.83 mg/dL (0.70-1.30); SODIUM 141 mmol/L (136-145); TOTAL PROTEIN 5.9 g/dL (6.4-8.2); eGFR NON BLACK RACES > 60 (>60)
[2021-02-17 08:17] LABS: PLATELET MORPHOLOGY COMMENT NORMAL (NORMAL)
[2021-02-17] MEDS: BROVANA IN SCH ×2 (09:05→20:00)
[2021-02-17] MEDS: PULMICORT NEB TX 0.5 MG NEB SCH ×2 (09:05→20:00)
[2021-02-17] MEDS: ACTOS PO SCH (09:23)
[2021-02-17] MEDS: LOVENOX INJ 150 MG SYR SC SCH ×2 (09:23→20:30)
[2021-02-17] MEDS: VIBRAMYCIN PO SCH ×2 (09:24→20:32)
[2021-02-17] MEDS: GLUCOPHAGE XR 24-HR PO SCH ×2 (09:24→20:31)
[2021-02-17] MEDS: VITAMIN D3 125 mcg (5,000 UNITS) PO SCH (09:24)
[2021-02-17] MEDS: LIPITOR TAB 80 MG PO SCH (09:24)
[2021-02-17] MEDS: THIAMINE HCL INJ IVP SCH ×2 (09:25→20:33)
[2021-02-17] MEDS: PROTONIX INJ 40 MG VIAL IVP SCH ×2 (09:25→20:33)
[2021-02-17] MEDS: PEPCID TAB 40 MG PO SCH ×2 (09:26→20:32)
[2021-02-17] MEDS: CYTOTEC PO SCH ×4 (09:33→22:43)
[2021-02-17] MEDS: FLUVOXAMINE MALEATE PO SCH ×2 (10:00→20:32)
[2021-02-17] MEDS: INVOKANA PO SCH (10:00)
[2021-02-17] MEDS: ZINC SULFATE PO SCH ×2 (10:00→20:33)
[2021-02-17] MEDS: VITAMIN A PO SCH (10:00)
[2021-02-17 14:48] VITALS: BMI 52.9
[2021-02-17] MEDS: MELATONIN PO SCH (20:33)
[2021-02-18] MEDS: SOLU-Medrol 125 MG VIAL IVP SCH ×4 (03:08→20:58)
[2021-02-18] MEDS: ASCORBIC ACID INJ MULTI-DOSE VIAL 1,500 MG in NS 100 ML IV 100 ML IV SCH ×4 (03:08→20:55)
[2021-02-18 05:25] LABS: BASOPHILS % (AUTO) 0.4 % (0.2-1.0); HEMATOCRIT 39.8 % (42.0-54.0); HEMOGLOBIN 13.8 g/dL (13.5-18.0); LYMPHOCYTES # (AUTO) 0.2 X10^3/uL (1.3-2.9); LYMPHOCYTES % (AUTO) 2.8 % (21.0-51.0); MEAN CORPUSCULAR HEMOGLOBIN 30.3 pg (27.0-34.0); MEAN CORPUSCULAR HGB CONC 34.5 g/dL (33.0-35.0); MEAN CORPUSCULAR VOLUME 87.9 fL (80.0-100.0); MEAN PLATELET VOLUME 9.5 fL (7.4-11.0); MONOCYTES # (AUTO) 0.3 x10^3/uL (0.3-0.8); MONOCYTES % (AUTO) 4.4 % (0.0-13.0); NEUTROPHILS # (AUTO) 7.1 x10^3/uL (2.2-4.8); NEUTROPHILS % (AUTO) 92.4 % (42.0-75.0); PLATELET COUNT 223 X10^3/uL (150.0-450.0); RED BLOOD COUNT 4.53 X10^6/uL (4.7-6.0); RED CELL DISTRIBUTION WIDTH 12.8 % (11.6-16.5); WHITE BLOOD COUNT 7.7 X10^3/uL (3.6-10.0)
[2021-02-18 05:52] LABS: ALANINE AMINOTRANSFERASE 65 Units/L (12-78); ALBUMIN 2.6 g/dL (3.4-5.0); ALKALINE PHOSPHATASE 50 Units/L (46-116); ASPARTATE AMINO TRANSFERASE 27 Units/L (15-37); BLOOD UREA NITROGEN 27 mg/dL (7-18); CALCIUM 8.3 mg/dL (8.5-10.1); CARBON DIOXIDE 31.6 mmol/L (21-32); CHLORIDE 104 mmol/L (98-107); COR CA(FOR HYPOALB) 9.4 mg/dL (8.5-10.1); COR NA(FOR HYPERGLY) 144 mmol/L (136-145); CREATININE 0.75 mg/dL (0.70-1.30); SODIUM 140 mmol/L (136-145); TOTAL PROTEIN 5.8 g/dL (6.4-8.2); eGFR NON BLACK RACES > 60 (>60)
[2021-02-18 06:15] LABS: PLATELET MORPHOLOGY COMMENT NORMAL (NORMAL)
[2021-02-18] MEDS: INVOKANA PO SCH (08:43)
[2021-02-18] MEDS: GLUCOPHAGE XR 24-HR PO SCH ×2 (08:43→20:56)
[2021-02-18] MEDS: PEPCID TAB 40 MG PO SCH ×2 (08:43→20:56)
[2021-02-18] MEDS: LOVENOX INJ 150 MG SYR SC SCH ×2 (08:44→20:55)
[2021-02-18] MEDS: CYTOTEC PO SCH ×4 (08:44→20:56)
[2021-02-18] MEDS: VIBRAMYCIN PO SCH ×2 (08:44→20:57)
[2021-02-18] MEDS: FLUVOXAMINE MALEATE PO SCH ×2 (08:44→20:56)
[2021-02-18] MEDS: ACTOS PO SCH (08:44)
[2021-02-18] MEDS: LIPITOR TAB 80 MG PO SCH (08:44)
[2021-02-18] MEDS: PROTONIX INJ 40 MG VIAL IVP SCH ×2 (08:44→20:59)
[2021-02-18] MEDS: ZINC SULFATE PO SCH ×2 (08:44→20:56)
[2021-02-18] MEDS: VITAMIN D3 125 mcg (5,000 UNITS) PO SCH (08:44)
[2021-02-18] MEDS: THIAMINE HCL INJ IVP SCH ×2 (08:45→20:57)
[2021-02-18] MEDS: VITAMIN A PO SCH (09:00)
[2021-02-18] MEDS ORDERED: NS 50 ML IV 50 ML IV ONE (09:26)
[2021-02-18] MEDS ORDERED: ASCORBIC ACID INJ MULTI-DOSE VIAL IV ONE (09:26)
[2021-02-18] MEDS: BROVANA IN SCH ×2 (09:40→21:34)
[2021-02-18] MEDS: PULMICORT NEB TX 0.5 MG NEB SCH ×2 (09:40→21:34)
[2021-02-18] MEDS: NS 1000 ML 1,000 ML IV SCH (17:33)
[2021-02-18] MEDS: MELATONIN PO SCH (20:56)
[2021-02-18] MEDS: VALIUM PO PRN (21:08)
[2021-02-19] MEDS: ULTRAM PO PRN ×2 (01:00→08:29)
[2021-02-19] MEDS: ASCORBIC ACID INJ MULTI-DOSE VIAL 1,500 MG in NS 100 ML IV 100 ML IV SCH ×4 (03:00→20:08)
[2021-02-19] MEDS: NS 1000 ML 1,000 ML IV SCH ×2 (04:07→18:16)
[2021-02-19] MEDS: SOLU-Medrol 125 MG VIAL IVP SCH ×4 (04:07→22:00)
[2021-02-19 06:43] LABS: ALANINE AMINOTRANSFERASE 62 Units/L (12-78); ALBUMIN 2.6 g/dL (3.4-5.0); ALKALINE PHOSPHATASE 47 Units/L (46-116); ASPARTATE AMINO TRANSFERASE 16 Units/L (15-37); BASOPHILS % (AUTO) 0.2 % (0.2-1.0); BLOOD UREA NITROGEN 26 mg/dL (7-18); CALCIUM 8.3 mg/dL (8.5-10.1); CARBON DIOXIDE 30.3 mmol/L (21-32); CHLORIDE 102 mmol/L (98-107); COR CA(FOR HYPOALB) 9.4 mg/dL (8.5-10.1); COR NA(FOR HYPERGLY) 141 mmol/L (136-145); CREATININE 0.79 mg/dL (0.70-1.30); HEMATOCRIT 37.3 % (42.0-54.0); HEMOGLOBIN 13.2 g/dL (13.5-18.0); LYMPHOCYTES # (AUTO) 0.4 X10^3/uL (1.3-2.9); LYMPHOCYTES % (AUTO) 3.3 % (21.0-51.0); MEAN CORPUSCULAR HEMOGLOBIN 30.8 pg (27.0-34.0); MEAN CORPUSCULAR HGB CONC 35.5 g/dL (33.0-35.0); MEAN CORPUSCULAR VOLUME 86.9 fL (80.0-100.0); MEAN PLATELET VOLUME 9.3 fL (7.4-11.0); MONOCYTES # (AUTO) 0.6 x10^3/uL (0.3-0.8); MONOCYTES % (AUTO) 5.4 % (0.0-13.0); NEUTROPHILS # (AUTO) 9.8 x10^3/uL (2.2-4.8); NEUTROPHILS % (AUTO) 91.1 % (42.0-75.0); PLATELET COUNT 222 X10^3/uL (150.0-450.0); RED BLOOD COUNT 4.29 X10^6/uL (4.7-6.0); RED CELL DISTRIBUTION WIDTH 12.9 % (11.6-16.5); SODIUM 138 mmol/L (136-145); TOTAL PROTEIN 5.7 g/dL (6.4-8.2); WHITE BLOOD COUNT 10.8 X10^3/uL (3.6-10.0); eGFR NON BLACK RACES > 60 (>60)
[2021-02-19 08:15] LABS: BAND NEUTROPHILS % 1 % (0-10); PLATELET MORPHOLOGY COMMENT NORMAL (NORMAL); POIKILOCYTOSIS SLIGHT
[2021-02-19] MEDS: PROTONIX INJ 40 MG VIAL IVP SCH ×2 (08:32→20:08)
[2021-02-19] MEDS: GLUCOPHAGE XR 24-HR PO SCH ×2 (08:32→20:09)
[2021-02-19] MEDS: ACTOS PO SCH (08:32)
[2021-02-19] MEDS: VIBRAMYCIN PO SCH (08:33)
[2021-02-19] MEDS: PEPCID TAB 40 MG PO SCH ×2 (08:33→20:09)
[2021-02-19] MEDS: INVOKANA PO SCH (08:34)
[2021-02-19] MEDS: FLUVOXAMINE MALEATE PO SCH ×2 (08:34→20:08)
[2021-02-19] MEDS: CYTOTEC PO SCH ×4 (08:35→20:09)
[2021-02-19] MEDS: ZINC SULFATE PO SCH ×2 (08:35→20:08)
[2021-02-19] MEDS: LIPITOR TAB 80 MG PO SCH (08:35)
[2021-02-19] MEDS: VITAMIN D3 125 mcg (5,000 UNITS) PO SCH (08:35)
[2021-02-19] MEDS: THIAMINE HCL INJ IVP SCH ×2 (08:37→20:09)
[2021-02-19] MEDS: VITAMIN A PO SCH (08:37)
[2021-02-19] MEDS ORDERED: LINZESS PO ONE (09:48)
[2021-02-19] MEDS: PULMICORT NEB TX 0.5 MG NEB SCH (10:00)
[2021-02-19] MEDS: BROVANA IN SCH (10:00)
[2021-02-19] MEDS ORDERED: FLOMAX PO SCH (10:00)
[2021-02-19] MEDS ORDERED: WELLBUTRIN XL 150 MG (DAILY) PO SCH (11:00)
[2021-02-19] MEDS: LOVENOX INJ 150 MG SYR SC SCH ×3 (11:59→22:00)
[2021-02-19] MEDS: VALIUM PO PRN ×2 (13:14→20:08)
--- NOTE | 2021-02-19 18:01 | CT ---
PROCEDURE: CT Abdomen and Pelvis without Contrast .HISTORY: Right lower quadrant pain.TECHNIQUE: Axial images were performed through the abdomen and pelvis without the administration of IV contrast with multiplanar reformations . Oral contrast was not administered . Dose reduction techniques including Automated Exposure Control (AEC) and adjustment of mA and kV were utilized .COMPARISON: None .TECHNICAL QUALITY: Satisfactory .FINDINGS:Some linear scar versus discoid atelectasis visualized lung bases.Moderate diffuse hepatic steatosis with hepatomegaly at 29.0 cm. Prominent spleen at 13.1 cm. Adrenals and pancreas are unremarkable. Kidneys show no stones or obstruction.Previous cholecystectomy with normal size biliary tree.No abdominal ascites or pneumoperitoneum.Trace atherosclerosis aorta.No lymphadenopathy.No bowel obstruction or inflammation. Umbilical hernia involving loop of small-bowel measuring 10 cm with no obstruction. Normal appendix right lower quadrant. No other right lower quadrant abnormality within the peritoneum.Pelvis shows no masses or free fluid. Unremarkable urinary bladder.Large rectus sheath hematoma on the right extending from the mid liver inferiorly down to the symphysis pubis with maximum dimensions of 20 by 10 by 40 cm.No acute bony abnormality.IMPRESSION:1. Large right rectus sheath hematoma extending from the mid liver down to the symphysis pubis.2. Normal appendix and intraperitoneal right lower quadrant.3. Diffuse hepatic steatosis with hepatomegaly.4. Prominent spleen.Electronically signed by: Tano Baires (Feb 19, 2021 17:59:50)
[2021-02-19] MEDS: MELATONIN PO SCH (20:08)
[2021-02-19] MEDS: MORPHINE SULFATE INJ 2 MG INJ IVP PRN (20:11)
[2021-02-19 21:03] LABS: HEMATOCRIT 35.6 % (42.0-54.0); HEMOGLOBIN 11.9 g/dL (13.5-18.0)
--- NOTE | 2021-02-19 22:38 | RAD ---
PROCEDURE: Chest X-ray 1 View .HISTORY: ACUTE DYSPNEA, COVID PNEUMONIA .TECHNIQUE: AP view .COMPARISON: 02/10/2021.TECHNICAL QUALITY: Satisfactory .FINDINGS:Unremarkable cardio mediastinal silhouette.Normal central vascularity.Patchy consolidation throughout both lung english that is improved compared to previous study. No pleural fluid or pneumothorax.IMPRESSION:Improving pneumonia bilaterally.Electronically signed by: Tano Baires (Feb 19, 2021 22:37:05)
[2021-02-20] MEDS: MORPHINE SULFATE INJ 2 MG INJ IVP PRN ×2 (01:32→05:19)
[2021-02-20] MEDS ORDERED: ZOFRAN INJ 4 MG VIAL IVP PRN (01:42)
[2021-02-20] MEDS ORDERED: ZOFRAN INJ 4 MG VIAL ONE (01:43)
[2021-02-20] MEDS: ASCORBIC ACID INJ MULTI-DOSE VIAL 1,500 MG in NS 100 ML IV 100 ML IV SCH (03:06)
[2021-02-20] MEDS: PULMICORT NEB TX 0.5 MG NEB SCH (03:35)
[2021-02-20] MEDS: BROVANA IN SCH (03:35)
[2021-02-20] MEDS: SOLU-Medrol 125 MG VIAL IVP SCH (04:06)
[2021-02-20] MEDS: ULTRAM PO PRN (04:18)
[2021-02-20] MEDS: VALIUM PO PRN (05:18)
[2021-02-20] MEDS ORDERED: LOPRESSOR INJ 5 MG AMP IVP ONE (05:32)
[2021-02-20] MEDS ORDERED: LOPRESSOR INJ 5 MG AMP ONE (05:33)
--- NOTE | 2021-02-20 05:45 | RAD ---
STUDY: CHEST, 1 VIEWCOMPARISON: 02/19/2021HISTORY: COVID+FINDINGS:Again noted is multifocal alveolar airspace disease involving the right and left lung which is not significantly changed from prior study.Cardiomediastinal contour is stable. No pleural effusion or pneumothorax is seen. Elevation the right hemidiaphragm is again seen.IMPRESSION:There is no significant change from prior study.Electronically signed by: Rafi Grewal (Feb 20, 2021 05:43:47)
[2021-02-20 05:51] LABS: BASOPHILS # (AUTO) 0.1 X10^3/uL (0.0-0.1); BASOPHILS % (AUTO) 0.3 % (0.2-1.0); HEMATOCRIT 33.7 % (42.0-54.0); HEMOGLOBIN 11.3 g/dL (13.5-18.0); LYMPHOCYTES # (AUTO) 0.6 X10^3/uL (1.3-2.9); LYMPHOCYTES % (AUTO) 1.2 % (21.0-51.0); MEAN CORPUSCULAR HEMOGLOBIN 30.2 pg (27.0-34.0); MEAN CORPUSCULAR HGB CONC 33.4 g/dL (33.0-35.0); MEAN CORPUSCULAR VOLUME 90.4 fL (80.0-100.0); MEAN PLATELET VOLUME 10.5 fL (7.4-11.0); MONOCYTES # (AUTO) 2.5 x10^3/uL (0.3-0.8); MONOCYTES % (AUTO) 5.5 % (0.0-13.0); NEUTROPHILS # (AUTO) 41.1 x10^3/uL (2.2-4.8); PLATELET COUNT 319 X10^3/uL (150.0-450.0); RED BLOOD COUNT 3.72 X10^6/uL (4.7-6.0); RED CELL DISTRIBUTION WIDTH 12.9 % (11.6-16.5)
[2021-02-20 05:57] LABS: ALBUMIN 2.6 g/dL (3.4-5.0); CALCIUM 7.9 mg/dL (8.5-10.1); CARBON DIOXIDE 23.6 mmol/L (21-32); CREATININE 2.59 mg/dL (0.70-1.30); TOTAL PROTEIN 5.2 g/dL (6.4-8.2)
[2021-02-20 06:02] LABS: WHITE BLOOD COUNT 44.3 X10^3/uL (3.6-10.0)
[2021-02-20 06:12] LABS: CKMB % 0.7 % (<4); CREATINE KINASE MB 2.5 ng/mL (0-4.0); TROPONIN I 0.07 ng/mL (0-1.5)
[2021-02-20 06:14] VITALS: BP 188/98
[2021-02-20] MEDS ORDERED: ADRENALINE CHL INJ IVP ONE ×12 (06:18→06:51)
[2021-02-20] MEDS ORDERED: SODIUM BICARBONATE 8.4% INJ ADULT IVP ONE (06:24)
[2021-02-20 06:39] LABS: METAMYELOCYTES % 4; PLATELET MORPHOLOGY COMMENT NORMAL (NORMAL)
== END 2021-02-20 11:30 | disposition expired | DRG 177 ==
LOC: ER 10:15 → OBS 16:49 → MED/SURG 02-11 20:15
PROVIDERS: ADMIT Obstetrics & Gynecology Obstetrics; ATTEND Obstetrics & Gynecology Obstetrics
DX: S39.011A Strain of muscle, fascia and tendon of abdomen, initial encounter; Y92.230 Patient room in hospital as the place of occurrence of the external cause; J81.1 Chronic pulmonary edema; E11.9 Type 2 diabetes mellitus without complications; F43.0 Acute stress reaction; R10.9 Unspecified abdominal pain; T79.4XXA Traumatic shock, initial encounter; R00.0 Tachycardia, unspecified; J12.81 Pneumonia due to SARS-associated coronavirus; I46.9 Cardiac arrest, cause unspecified; X58.XXXA Exposure to other specified factors, initial encounter; U07.1 COVID-19